=== PATIENT | male | born 1970 | race Caucasian/White ===

== ENCOUNTER 2016-10-20 18:54 | Emergency (ER) | payer MEDICARE, MEDICAID ==
[2016-10-20] MEDS ORDERED: LORazepam TAB(*) 1 MG PO ONE (19:09)
[2016-10-20] MEDS ORDERED: diPHENhydraMINE PO* 50 MG PO ONE (19:09)
[2016-10-20] MEDS ORDERED: Haloperidol TAB* 5 MG PO ONE (19:09)
--- NOTE | 2016-10-20 23:38 | ED ---
Sofiya Howard Erika, scribed for Jeremy Foley MD on 10/20/16 at 2028 . Substance Abuse/Use - HPI Summary HPI Summary: Patient is a 46-year-old male BIB law enforcement to the ED as a 2208. Per , patient called 911 seven times today. He admits to drinking today in the ED. Hx TBI. LEVEL 5 CAVEAT - INTOXICATED. - History Of Current Complaint Chief Complaint: EDSubstanceAbuse Stated Complaint: 2208 Time Seen by Provider: 10/20/16 19:05 Hx Obtained From: Patient, Other: - law enforcement Ingestion History: Type/Name Of Drug - EtOH Severity Currently: Moderate Character: Stuporous Associated Signs And Symptoms: Agitated - Allergies/Home Medications Allergies/Adverse Reactions: Allergies Allergy/AdvReac Type Severity Reaction Status Date / Time Aspirin [ASA] Allergy Intermediate Hives Verified 10/20/16 18:56 PMH/Surg Hx/FS Hx/Imm Hx Endocrine/Hematology History: Denies: Hx Anticoagulant Therapy, Hx Diabetes, Hx Thyroid Disease Cardiovascular History: Denies: Hx Hypertension, Hx Pacemaker/ICD Respiratory History: Denies: Hx Asthma, Hx Chronic Obstructive Pulmonary Disease (COPD) History: Denies: Hx Renal Disease Musculoskeletal History: Reports: Hx Arthritis Sensory History: Reports: Hx Contacts or Glasses, Hx Vision Problem Opthamlomology History: Reports: Hx Contacts or Glasses, Hx Vision Problem Neurological History: Reports: Hx Headaches, Other Neuro Impairments/Disorders - HX TRAUMATIC BRAIN INJURY Denies: Hx Dementia, Hx Seizures Psychiatric History: Reports: Hx Community Mental Health Tx, Hx Substance Abuse Denies: Hx Eating Disorder, Hx of Violent Episodes Against Others - Surgical History Surgery Procedure, Year, and Place: C SPINE FUSION/HX OF FXS TRAUMATIC BRAIN INJURY - Immunization History Date of Tetanus Vaccine: Unknown Date of Influenza Vaccine: unknown Infectious Disease History: No Infectious Disease History: Denies: Hx Hepatitis, Hx Human Immunodeficiency Virus (HIV), Traveled Outside the [place] in Last 30 Days - Family History Family History: EtOH abuse, depression, anxiety, mood disorder - Social History Alcohol Use: Daily Alcohol Amount: ETOH Abuse Hx Substance Use: Yes Substance Use Type: Reports: Cocaine, Marijuana Substance Use Comment - Amount & Last Used: Crack cocaine Hx Tobacco Use: Yes Smoking Status (MU): Heavy Every Day Tobacco Smoker Type: Cigarettes Amount Used/How Often: over a pack daily Length of Time of Smoking/Using Tobacco: many years Have You Smoked in the Last Year: Yes Review of Systems - ROS Summary Review of Systems Summary: LEVEL 5 CAVEAT - INTOXICATED Constitutional: Other - Intoxicated All Other Systems Reviewed And Are Negative: No Physical Exam - Summary Physical Exam Summary: The patient is well-nourished in no acute distress and in no acute pain. The skin is warm and dry and skin color reflects adequate perfusion. HEENT: The head is normocephalic. There is an abrasion above the R eye. No Raccoon or Fernandez's sign. The pupils are equal and reactive. The conjunctivae are clear and without drainage. Nares are patent and without drainage. Mouth reveals moist mucous membranes and the throat is without erythema and exudate. The external ears are intact. The ear canals are patent and without drainage. The tympanic membranes are intact. There is no hemotympanum. Neck is supple with full range of motion. Respiratory: Lungs are clear to auscultation and breath sounds are symmetrical and equal. Cardiovascular: Heart is regular rate and rhythm. There is no murmur or rub auscultated. Abdomen: The abdomen is soft and non-tender. Musculoskeletal: There is good motor strength in both upper extremities. There is no abnormality to the legs. Neurological: Patient is alert and appears intoxicated. Pt admits to drinking. Psychiatric: The patient is agreeable. Triage Information Reviewed: Yes Vital Signs On Initial Exam: Initial Vitals Temp Pulse Resp BP Pulse Ox 98.3 F 72 18 127/91 98 10/20/16 18:56 10/20/16 18:56 10/20/16 18:56 10/20/16 18:56 10/20/16 18:56 Vital Signs Reviewed: Yes Completion Of Physical Exam Limited Due To: Level 5 - Intoxicated Diagnostics - Vital Signs Vital Signs Temp Pulse Resp BP Pulse Ox 10/20/16 18:56 98.3 F 72 18 127/91 98 - Laboratory Lab Statement: Any lab studies that have been ordered have been reviewed, and results considered in the medical decision making process. Course/Dx - Course Assessment/Plan: A 46 y/o presents to the ED intoxicated. Pt admits to drinking. Pt is combative upon arrival, and is given a B-52 in the ED and is resting comfortably. Pt will be discharged once sober. - Diagnoses Differential Diagnosis/HQI/PQRI: Positive: Alcohol Abuse, Other Provider Diagnoses: Acute alcoholic intoxication Discharge - Discharge Plan Condition: Stable Disposition: HOME Patient Education Materials: Alcohol Intoxication (ED) Referrals: Flex Salmeron MD [Primary Care Provider] - The documentation as recorded by the Sofiya calderon Erika accurately reflects the service I personally performed and the decisions made by me, Jeremy Foley MD.
[2016-10-21 06:34] VITALS: BP 102/63
--- NOTE | 2016-10-21 06:54 | ED ---
Sherita Howadr Salem, scribed for Oskar Norman on 10/21/16 at 0645 . Progress - Progress Note Progress Note: Pt is fine. Will be DC'd. Course/Dx - Diagnoses Provider Diagnoses: Acute alcoholic intoxication The documentation as recorded by the Sherita calderon Salem accurately reflects the service I personally performed and the decisions made by Ester roca Emmanuel.
== END 2016-10-21 06:46 | disposition home or self-care (01) ==
LOC: ED 18:54
DX: F10.129 Alcohol abuse with intoxication, unspecified (principal); F17.290 Nicotine dependence, other tobacco product, uncomplicated; Z88.6 Allergy status to analgesic agent
CPT/HCPCS: 99283; A9270-GY

== ENCOUNTER 2016-11-17 18:46 | Emergency (ER) | payer MEDICARE, MEDICAID ==
[2016-11-17 21:00] LABS: Hematocrit 44 % (42-52); Hemoglobin 14.4 g/dl (14.0-18.0); Mean Corpuscular HGB Conc 33 g/dl (31-36); Mean Corpuscular Hemoglobin 31 pg (27-31); Mean Corpuscular Volume 93 fL (80-94); Mean Platelet Volume 8 um3 (7.4-10.4); Red Cell Distribution Width 13 % (10.5-15)
[2016-11-17 21:02] LABS: Urine Bilirubin Negative (Negative); Urine Glucose Negative (Negative); Urine Nitrite Negative (Negative)
[2016-11-17 21:14] LABS: ALT 19 U/L (7-52); AST 21 U/L (13-39); Alkaline Phosphatase 60 U/L (34-104); Anion Gap 12 mmol/L (2-11); Blood Urea Nitrogen 6 mg/dL (6-24); CO2 Carbon Dioxide 24 mmol/L (22-32); Calcium 9.2 mg/dL (8.6-10.3); Chloride 105 mmol/L (101-111); EGFR African American 103.5 (>60); EGFR Non-African American 80.4 (>60); Globulin 2.8 g/dL (2-4); Glucose 98 mg/dL (70-100); Potassium 3.4 mmol/L (3.5-5.0); Sodium 141 mmol/L (133-145); Total Protein 6.8 g/dL (6.4-8.9)
[2016-11-17 21:33] LABS: Benzodiazepine Urine Screen None Detected (None Detect)
[2016-11-17 21:36] LABS: Acetaminophen < 15 mcg/mL; Alcohol 188 mg/dL (<10); Salicylate < 2.50 mg/dL (<30)
[2016-11-17 21:46] LABS: TSH (Thyroid Stimulating Horm) 2.25 mcIU/mL (0.34-5.60)
--- NOTE | 2016-11-17 22:06 | ED ---
Kulwinder Howard Billy, scribed for Armando Hernandez MD on 11/17/16 at 1941 . Psychiatric Complaint - HPI Summary HPI Summary: Patient is a 46 year-old male brought to [facility] by for [facility]. Patient is not very cooperative in the ED and is not providing much history. According to EMS and nursing report, patient is highly intoxicated and has made statements indicating intention to harm himself and others. - History Of Current Complaint Chief Complaint: EDMentalHealth Time Seen by Provider: 11/17/16 19:11 Accompanied By: Sheriff Purcell Obtained From: EMS, Medical Records Onset/Duration: Gradual Onset Timing: Constant Severity Initially: Moderate Severity Currently: Moderate Aggravating Factor(s): Alcohol Use Alleviating Factor(s): Nothing Related History: Positive For: Prior Psychiatric Issues Has Suicidal: Reports: Thoughts Has Homicidal: Reports: Thoughts Ingestion History: Type/Name Of Drug - EtOH, Amount Ingested - Unknown - Allergies/Home Medications Allergies/Adverse Reactions: Allergies Allergy/AdvReac Type Severity Reaction Status Date / Time Aspirin [ASA] Allergy Intermediate Hives Verified 11/17/16 19:04 PMH/Surg Hx/FS Hx/Imm Hx Endocrine/Hematology History: Denies: Hx Anticoagulant Therapy, Hx Diabetes, Hx Thyroid Disease Cardiovascular History: Denies: Hx Hypertension, Hx Pacemaker/ICD Respiratory History: Denies: Hx Asthma, Hx Chronic Obstructive Pulmonary Disease (COPD) History: Denies: Hx Renal Disease Musculoskeletal History: Reports: Hx Arthritis Sensory History: Reports: Hx Contacts or Glasses, Hx Vision Problem Opthamlomology History: Reports: Hx Contacts or Glasses, Hx Vision Problem Neurological History: Reports: Hx Headaches, Other Neuro Impairments/Disorders - HX TRAUMATIC BRAIN INJURY Denies: Hx Dementia, Hx Seizures Psychiatric History: Reports: Hx Community Mental Health Tx, Hx Substance Abuse Denies: Hx Eating Disorder, Hx of Violent Episodes Against Others - Surgical History Surgery Procedure, Year, and Place: C SPINE FUSION/HX OF FXS TRAUMATIC BRAIN INJURY - Immunization History Date of Tetanus Vaccine: Unknown Date of Influenza Vaccine: unknown Infectious Disease History: No Infectious Disease History: Denies: Hx Hepatitis, Hx Human Immunodeficiency Virus (HIV), Traveled Outside the [place] in Last 30 Days - Family History Known Family History: Positive: Other Family History: EtOH abuse, depression, anxiety, mood disorder - Social History Alcohol Use: Daily Alcohol Amount: ETOH Abuse Hx Substance Use: Yes Substance Use Type: Reports: Cocaine, Marijuana Substance Use Comment - Amount & Last Used: Crack cocaine Hx Tobacco Use: Yes Smoking Status (MU): Heavy Every Day Tobacco Smoker Type: Cigarettes Amount Used/How Often: over a pack daily Length of Time of Smoking/Using Tobacco: many years Have You Smoked in the Last Year: Yes Review of Systems Neurological: Other - EtOH intoxication Psychological: Other - SI/HI All Other Systems Reviewed And Are Negative: No - Comments Additional Review of Systems Comments: Full ROS not obtained from the patient as he is highly intoxicated and is not very cooperative. Physical Exam Triage Information Reviewed: Yes Vital Signs On Initial Exam: Initial Vitals Temp Pulse Resp BP Pulse Ox 97.7 F 78 18 129/111 100 11/17/16 19:02 11/17/16 19:02 11/17/16 19:02 11/17/16 19:02 11/17/16 19:02 Vital Signs Reviewed: Yes Appearance: Positive: Well-Appearing, No Pain Distress Skin: Positive: Warm Head/Face: Positive: Normal Head/Face Inspection Eyes: Positive: BRUNO ENT: Positive: Hearing grossly normal Neck: Positive: Supple Respiratory/Lung Sounds: Positive: Clear to Auscultation, Breath Sounds Present Cardiovascular: Positive: RRR Abdomen Description: Positive: Nontender, Soft Bowel Sounds: Positive: Present Musculoskeletal: Positive: Strength/ROM Intact Neurological: Positive: Sensory/Motor Intact, Alert, Oriented to Person Place, Time Psychiatric: Positive: Affect/Mood Appropriate Diagnostics - Vital Signs Vital Signs Temp Pulse Resp BP Pulse Ox 11/17/16 19:02 97.7 F 78 18 129/111 100 - Laboratory Lab Results: Lab Results 11/17/16 11/17/16 11/17/16 Range/Units 20:50 20:50 20:50 WBC 6.0 (3.5-10.8) 10^3/ul RBC 4.70 (4.0-5.4) 10^6/ul Hgb 14.4 (14.0-18.0) g/dl Hct 44 (42-52) % MCV 93 (80-94) fL MCH 31 (27-31) pg MCHC 33 (31-36) g/dl RDW 13 (10.5-15) % Plt Count 170 (150-450) 10^3/ul MPV 8 (7.4-10.4) um3 Neut % (Auto) 48.5 (38-83) % Lymph % (Auto) 42.1 (25-47) % [place] % (Auto) 6.9 (1-9) % Eos % (Auto) 1.5 (0-6) % Baso % (Auto) 1.0 (0-2) % Absolute Neuts (auto) 2.9 (1.5-7.7) 10^3/ul Absolute Lymphs (auto) 2.5 (1.0-4.8) 10^3/ul Absolute Monos (auto) 0.4 (0-0.8) 10^3/ul Absolute Eos (auto) 0.1 (0-0.6) 10^3/ul Absolute Basos (auto) 0.1 (0-0.2) 10^3/ul Absolute Nucleated RBC 0 10^3/ul Nucleated RBC % 0.1 Sodium 141 (133-145) mmol/L Potassium 3.4 L (3.5-5.0) mmol/L Chloride 105 (101-111) mmol/L Carbon Dioxide 24 (22-32) mmol/L Anion Gap 12 H (2-11) mmol/L BUN 6 (6-24) mg/dL Creatinine 1.00 (0.67-1.17) mg/dL Est GFR ( Amer) 103.5 (>60) Est GFR (Non-Af Amer) 80.4 (>60) BUN/Creatinine Ratio 6.0 L (8-20) Glucose 98 (70-100) mg/dL Calcium 9.2 (8.6-10.3) mg/dL Total Bilirubin 0.30 (0.2-1.0) mg/dL AST 21 (13-39) U/L ALT 19 (7-52) U/L Alkaline Phosphatase 60 (34-104) U/L Total Protein 6.8 (6.4-8.9) g/dL Albumin 4.0 (3.2-5.2) g/dL Globulin 2.8 (2-4) g/dL Albumin/Globulin Ratio 1.4 (1-3) TSH 2.25 (0.34-5.60) mcIU/mL Urine Color Straw Urine Appearance Clear Urine pH 6.0 (5-9) Ur Specific [place] 1.002 L (1.010-1.030) Urine Protein Negative (Negative) Urine Ketones Negative (Negative) Urine Blood Negative (Negative) Urine Nitrate Negative (Negative) Urine Bilirubin Negative (Negative) Urine Urobilinogen Negative (Negative) Ur Leukocyte Esterase Negative (Negative) Urine Glucose Negative (Negative) Salicylates < 2.50 (<30) mg/dL Urine Opiates Screen (None Detect) Acetaminophen < 15 mcg/mL Ur Barbiturates Screen (None Detect) Ur Phencyclidine Scrn (None Detect) Ur Amphetamines Screen (None Detect) U Benzodiazepines Scrn (None Detect) Urine Cocaine Screen (None Detect) U Cannabinoids Screen (None Detect) Serum Alcohol 188 H (<10) mg/dL 11/17/16 Range/Units 20:50 WBC (3.5-10.8) 10^3/ul RBC (4.0-5.4) 10^6/ul Hgb (14.0-18.0) g/dl Hct (42-52) % MCV (80-94) fL MCH (27-31) pg MCHC (31-36) g/dl RDW (10.5-15) % Plt Count (150-450) 10^3/ul MPV (7.4-10.4) um3 Neut % (Auto) (38-83) % Lymph % (Auto) (25-47) % [place] % (Auto) (1-9) % Eos % (Auto) (0-6) % Baso % (Auto) (0-2) % Absolute Neuts (auto) (1.5-7.7) 10^3/ul Absolute Lymphs (auto) (1.0-4.8) 10^3/ul Absolute Monos (auto) (0-0.8) 10^3/ul Absolute Eos (auto) (0-0.6) 10^3/ul Absolute Basos (auto) (0-0.2) 10^3/ul Absolute Nucleated RBC 10^3/ul Nucleated RBC % Sodium (133-145) mmol/L Potassium (3.5-5.0) mmol/L Chloride (101-111) mmol/L Carbon Dioxide (22-32) mmol/L Anion Gap (2-11) mmol/L BUN (6-24) mg/dL Creatinine (0.67-1.17) mg/dL Est GFR ( Amer) (>60) Est GFR (Non-Af Amer) (>60) BUN/Creatinine Ratio (8-20) Glucose (70-100) mg/dL Calcium (8.6-10.3) mg/dL Total Bilirubin (0.2-1.0) mg/dL AST (13-39) U/L ALT (7-52) U/L Alkaline Phosphatase (34-104) U/L Total Protein (6.4-8.9) g/dL Albumin (3.2-5.2) g/dL Globulin (2-4) g/dL Albumin/Globulin Ratio (1-3) TSH (0.34-5.60) mcIU/mL Urine Color Urine Appearance Urine pH (5-9) Ur Specific [place] (1.010-1.030) Urine Protein (Negative) Urine Ketones (Negative) Urine Blood (Negative) Urine Nitrate (Negative) Urine Bilirubin (Negative) Urine Urobilinogen (Negative) Ur Leukocyte Esterase (Negative) Urine Glucose (Negative) Salicylates (<30) mg/dL Urine Opiates Screen None detected (None Detect) Acetaminophen mcg/mL Ur Barbiturates Screen None detected (None Detect) Ur Phencyclidine Scrn None detected (None Detect) Ur Amphetamines Screen None detected (None Detect) U Benzodiazepines Scrn None detected (None Detect) Urine Cocaine Screen None detected (None Detect) U Cannabinoids Screen Presumptive positive H (None Detect) Serum Alcohol (<10) mg/dL Result Diagrams: 11/17/16 20:50 11/17/16 20:50 Lab Statement: Any lab studies that have been ordered have been reviewed, and results considered in the medical decision making process. Course/Dx - Differential Dx/Clinical Impression Provider Diagnosis: Alcohol intoxication Discharge - Discharge Plan Condition: Improved Disposition: HOME Referrals: Flex Salmeron MD [Primary Care Provider] - The documentation as recorded by the Kulwinder calderon Billy accurately reflects the service I personally performed and the decisions made by , Armando Hernandez MD.
[2016-11-18 04:35] VITALS: BP 125/65
== END 2016-11-18 02:35 | disposition home or self-care (01) ==
LOC: ED 18:46
DX: F10.129 Alcohol abuse with intoxication, unspecified (principal); Y90.6 Blood alcohol level of 120-199 mg/100 ml
CPT/HCPCS: 36415; 80053; 80307; 80320; 80329; 81003; 84443; 85025; 99284; G0480

== ENCOUNTER → 2017-01-09 13:23 | Emergency (ER) | payer MEDICARE, MEDICAID ==
[~2017-01-09 13:23] MED LIST: Haloperidol INJ IV/IM* 5 MG/ML AMP IM ONE; Haloperidol INJ IV/IM* 5 MG/ML AMP ONE; LORazepam INJ* 2 MG/ML 1 ML VIAL IM ONE; diPHENhydraMINE IV* 50 MG/ML 1 ml VIAL (BENADRYL) IM ONE
[2017-01-10 06:13] VITALS: BP 109/68
--- NOTE | 2017-01-10 14:01 | ED ---
Viviana Howard Anna, scribed for Ndubuisi,Cole Mckoy MD on 01/09/17 at 1809 . Substance Abuse/Use - HPI Summary HPI Summary: Patient is a 46 y/o male BIBA to [facility] presenting with alchohol intoxication. No trauma noted, smells of EtOH, and does not ambulate in a straight line. - History Of Current Complaint Chief Complaint: EDSubstanceAbuse Stated Complaint: 2209 EOTH Time Seen by Provider: 01/09/17 13:25 Hx Obtained From: Patient, EMS Hx From Patient Unobtainable Due To: Altered Mental Status - Allergies/Home Medications Allergies/Adverse Reactions: Allergies Allergy/AdvReac Type Severity Reaction Status Date / Time Aspirin [ASA] Allergy Intermediate Hives Verified 11/17/16 19:04 Home Medications: Home Medications Aripiprazole Maintena (NF) [Abilify Maintena (NF)] 400 mg IM Q28D 01/09/17 [ History Confirmed 01/09/17] Ibuprofen TAB* [Motrin TAB* 600 MG] 600 mg PO Q8H PRN 01/09/17 [History Confirmed 01/09/17] PMH/Surg Hx/FS Hx/Imm Hx Endocrine/Hematology History: Denies: Hx Anticoagulant Therapy, Hx Diabetes, Hx Thyroid Disease Cardiovascular History: Denies: Hx Hypertension, Hx Pacemaker/ICD Respiratory History: Denies: Hx Asthma, Hx Chronic Obstructive Pulmonary Disease (COPD) History: Denies: Hx Renal Disease Musculoskeletal History: Reports: Hx Arthritis Sensory History: Reports: Hx Contacts or Glasses, Hx Vision Problem Opthamlomology History: Reports: Hx Contacts or Glasses, Hx Vision Problem Neurological History: Reports: Hx Headaches, Other Neuro Impairments/Disorders - HX TRAUMATIC BRAIN INJURY Denies: Hx Dementia, Hx Seizures Psychiatric History: Reports: Hx Community Mental Health Tx, Hx Substance Abuse Denies: Hx Eating Disorder, Hx of Violent Episodes Against Others - Surgical History Surgery Procedure, Year, and Place: C SPINE FUSION/HX OF FXS TRAUMATIC BRAIN INJURY - Immunization History Date of Tetanus Vaccine: Unknown Date of Influenza Vaccine: unknown Infectious Disease History: No Infectious Disease History: Denies: Hx Hepatitis, Hx Human Immunodeficiency Virus (HIV), Traveled Outside the [place] in Last 30 Days - Family History Known Family History: Positive: Other Family History: EtOH abuse, depression, anxiety, mood disorder - Social History Alcohol Use: Daily Alcohol Amount: ETOH Abuse Hx Substance Use: Yes Substance Use Type: Reports: Cocaine, Marijuana Substance Use Comment - Amount & Last Used: Crack cocaine Hx Tobacco Use: Yes Smoking Status (MU): Heavy Every Day Tobacco Smoker Type: Cigarettes Amount Used/How Often: over a pack daily Length of Time of Smoking/Using Tobacco: many years Have You Smoked in the Last Year: Yes Review of Systems - ROS Summary Review of Systems Summary: LEVEL 5 CAVEAT - UNABLE TO OBTAIN FULL HISTORY DUE TO ALTERED MENTAL STATUS Constitutional: Other - alcohol intoxication Neurological: Other - drowsy but rousable All Other Systems Reviewed And Are Negative: No Physical Exam Triage Information Reviewed: Yes Vital Signs On Initial Exam: Initial Vitals Temp Pulse Resp BP Pulse Ox 97.7 F 76 18 102/47 98 01/09/17 13:43 01/09/17 13:43 01/09/17 13:43 01/09/17 13:43 01/09/17 13:43 Vital Signs Reviewed: Yes Appearance: Positive: Well-Appearing, No Pain Distress, Well-Nourished Skin: Positive: Warm, Skin Color Reflects Adequate Perfusion, Dry Head/Face: Positive: Normal Head/Face Inspection Eyes: Positive: EOMI, BRUNO, Conjunctiva Clear ENT: Positive: Pharynx normal, TMs normal Neck: Positive: Supple, Nontender Respiratory/Lung Sounds: Positive: Clear to Auscultation, Breath Sounds Present. Negative: Rales, Rhonchi, Wheezes Cardiovascular: Positive: RRR, S1, S2. Negative: Murmur, Rub, Other - no gallops Abdomen Description: Positive: Nontender, Soft. Negative: Distended, Guarding, Other: Bowel Sounds: Positive: Present Musculoskeletal: Positive: Normal, Strength/ROM Intact Neurological: Positive: Normal, Sensory/Motor Intact, Alert, Oriented to Person Place, Time. Negative: Cerebellar Dysfunction Psychiatric: Positive: Affect/Mood Appropriate - Hemant Coma Scale Coma Scale Total: 14 Diagnostics - Vital Signs Vital Signs Temp Pulse Resp BP Pulse Ox 01/09/17 16:41 97.9 F 65 18 103/65 96 01/09/17 16:38 20 01/09/17 15:17 58 17 94/58 100 01/09/17 13:46 97.9 F 76 18 102/47 98 01/09/17 13:43 97.7 F 76 18 102/47 98 - Laboratory Lab Results: Lab Results 01/09/17 Range/Units 19:34 POC Glucose (mg/dL) 81 (74-106) mg/dL Lab Statement: Any lab studies that have been ordered have been reviewed, and results considered in the medical decision making process. Re-Evaluation - Re-Evaluation First Eval Re-Evaluation Time: 15:10 Change: Unchanged Comment: Pt is still combative. Being held down physically by security after 50 mg IM of Benadryl and 50 mg of Ativan. Will give 5 mg of Haloperidol and re- assess. Course/Dx - Course Assessment/Plan: Patient is a 46 y/o male BIBA to [facility] presenting with altered mental status that began today. Pt combative in the ED course. He was held down physically by security after 50 mg IM of Benadryl and 50 mg of Ativan. He was given 5 mg of Haloperidol. At shift change, patient is still intoxicated and sleeping. Difficult to rouse. He will be signed out pending sobriety. - Diagnoses Provider Diagnoses: Alcohol use Discharge - Discharge Plan Condition: Stable Disposition: HOME Discharge Disposition Comment: Signed out to Dr. Wilson at shift change, pending sobriety Patient Education Materials: Alcohol Intoxication (ED) Referrals: Flex Salmeron MD [Primary Care Provider] - Additional Instructions: FOLLOW UP WITH YOUR DOCTOR. RETURN TO THE EMERGENCY DEPARTMENT FOR ANY WORSENING OF YOUR CONDITION OR QUESTIONS OR CONCERNS. The documentation as recorded by the Viviana calderon Anna accurately reflects the service I personally performed and the decisions made by , Cole Verdin MD.
== END | disposition home or self-care (01) ==
LOC: ED 13:23
DX: F10.10 Alcohol abuse, uncomplicated (principal)
CPT/HCPCS: 96374; 96375; 99285; J1200; J1630; J2060

== ENCOUNTER 2017-02-28 19:53 | Emergency (ER) | payer MEDICARE, MEDICAID ==
--- NOTE | 2017-02-28 21:35 | ED ---
Shawna Howard Claudia, scribed for Armando Hernandez MD on 02/28/17 at 2006 . Substance Abuse/Use - HPI Summary HPI Summary: 46 year old male presents to the ED via EMS after police were called for being intoxicated and combative at a nearby gas station. Pt is combative and requesting to go to another hospital upon arrival. Pt is stuporous in the ED. There is no evidence of trauma. level 5 caveat- stuporous - History Of Current Complaint Stated Complaint: ETOH/941 Time Seen by Provider: 02/28/17 20:01 Hx Obtained From: Patient - Allergies/Home Medications Allergies/Adverse Reactions: Allergies Allergy/AdvReac Type Severity Reaction Status Date / Time Aspirin [ASA] Allergy Intermediate Hives Verified 11/17/16 19:04 PMH/Surg Hx/FS Hx/Imm Hx Previously Healthy: Yes Endocrine/Hematology History: Denies: Hx Anticoagulant Therapy, Hx Diabetes, Hx Thyroid Disease Cardiovascular History: Denies: Hx Hypertension, Hx Pacemaker/ICD Respiratory History: Denies: Hx Asthma, Hx Chronic Obstructive Pulmonary Disease (COPD) History: Denies: Hx Renal Disease Musculoskeletal History: Reports: Hx Arthritis Sensory History: Reports: Hx Contacts or Glasses, Hx Vision Problem Opthamlomology History: Reports: Hx Contacts or Glasses, Hx Vision Problem Neurological History: Reports: Hx Headaches, Other Neuro Impairments/Disorders - HX TRAUMATIC BRAIN INJURY Denies: Hx Dementia, Hx Seizures Psychiatric History: Reports: Hx Community Mental Health Tx, Hx Substance Abuse Denies: Hx Eating Disorder, Hx of Violent Episodes Against Others - Surgical History Surgery Procedure, Year, and Place: C SPINE FUSION/HX OF FXS TRAUMATIC BRAIN INJURY - Immunization History Date of Tetanus Vaccine: Unknown Date of Influenza Vaccine: unknown Infectious Disease History: Denies: Hx Hepatitis, Hx Human Immunodeficiency Virus (HIV), Traveled Outside the [place] in Last 30 Days - Family History Known Family History: Positive: Other Family History: EtOH abuse, depression, anxiety, mood disorder - Social History Occupation: Disabled Alcohol Use: Daily Alcohol Amount: ETOH Abuse Hx Substance Use: Yes Substance Use Type: Reports: Cocaine, Marijuana Substance Use Comment - Amount & Last Used: Crack cocaine Hx Tobacco Use: Yes Smoking Status (MU): Heavy Every Day Tobacco Smoker Type: Cigarettes Amount Used/How Often: over a pack daily Length of Time of Smoking/Using Tobacco: many years Have You Smoked in the Last Year: Yes Review of Systems - ROS Summary Review of Systems Summary: Level 5 caveat- Stuporous Constitutional: Negative Eyes: Negative ENT: Negative Cardiovascular: Negative Respiratory: Negative Gastrointestinal: Negative Genitourinary: Negative Musculoskeletal: Negative Skin: Negative Neurological: Negative Positive: Other - stuporous All Other Systems Reviewed And Are Negative: No Physical Exam Triage Information Reviewed: Yes Vital Signs On Initial Exam: Initial Vitals Temp Pulse Resp BP Pulse Ox 98.4 F 73 22 102/75 95 02/28/17 20:00 02/28/17 20:00 02/28/17 20:00 02/28/17 20:00 02/28/17 20:00 Vital Signs Reviewed: Yes Appearance: Positive: Well-Appearing Skin: Positive: Warm Head/Face: Positive: Normal Head/Face Inspection Eyes: Positive: BRUNO Respiratory/Lung Sounds: Positive: Breath Sounds Present Cardiovascular: Positive: RRR Abdomen Description: Positive: Nontender, Soft Musculoskeletal: Positive: Strength/ROM Intact Diagnostics - Vital Signs Vital Signs Temp Pulse Resp BP Pulse Ox 02/28/17 20:00 98.4 F 73 22 102/75 95 - Laboratory Lab Statement: Any lab studies that have been ordered have been reviewed, and results considered in the medical decision making process. Course/Dx - Course Assessment/Plan: MDM: PT RECIEVES ROUTINE WORK-UP. PT WILL BE D/C [facility]ON [facility]. - Diagnoses Provider Diagnoses: Alcohol use disorder Discharge - Discharge Plan Condition: Improved Disposition: HOME Patient Education Materials: Alcohol Intoxication (ED) Referrals: Flex Salmeron MD [Primary Care Provider] - The documentation as recorded by the Shawna calderon Claudia accurately reflects the service I personally performed and the decisions made by , Armando Hernandez MD.
[2017-03-01 06:23] VITALS: BP 137/66
== END 2017-03-01 06:22 | disposition home or self-care (01) ==
LOC: ED 19:53
DX: F10.929 Alcohol use, unspecified with intoxication, unspecified (principal); F17.210 Nicotine dependence, cigarettes, uncomplicated
CPT/HCPCS: 99285

== ENCOUNTER 2017-03-16 23:19 | Emergency (ER) | payer MEDICARE, MEDICAID ==
--- NOTE | 2017-03-17 00:54 | ED ---
Syed Howard Rebecca, scribed for Armando Hernandez MD on 03/16/17 at 2351 . 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 Tonight, he fell and walked to the fire station. Pt ranked pain as 8/10 on triage, though pain was alleviated after bandaging by his nurse. Level 5 caveat due to EtOH intoxication. - History Of Current Complaint Chief Complaint: EDSubstanceAbuse Stated Complaint: 2208 Time Seen by Provider: 03/16/17 23:42 Hx Obtained From: EMS Hx From Patient Unobtainable Due To: Other - EtOH intoxication Ingestion History: Type/Name Of Drug - EtOH Overdose Characteristics: Oral Associated Signs And Symptoms: Other: - Bilateral LE pain - Allergies/Home Medications Allergies/Adverse Reactions: Allergies Allergy/AdvReac Type Severity Reaction Status Date / Time Aspirin [ASA] Allergy Intermediate Hives Verified 11/17/16 19:04 PMH/Surg Hx/FS Hx/Imm Hx Endocrine/Hematology History: Denies: Hx Anticoagulant Therapy, Hx Diabetes, Hx Thyroid Disease Cardiovascular History: Denies: Hx Hypertension, Hx Pacemaker/ICD Respiratory History: Denies: Hx Asthma, Hx Chronic Obstructive Pulmonary Disease (COPD) History: Denies: Hx Renal Disease Musculoskeletal History: Reports: Hx Arthritis Sensory History: Reports: Hx Contacts or Glasses, Hx Vision Problem Opthamlomology History: Reports: Hx Contacts or Glasses, Hx Vision Problem Neurological History: Reports: Hx Headaches, Other Neuro Impairments/Disorders - HX TRAUMATIC BRAIN INJURY Denies: Hx Dementia, Hx Seizures Psychiatric History: Reports: Hx Community Mental Health Tx, Hx Substance Abuse Denies: Hx Eating Disorder, Hx of Violent Episodes Against Others - Surgical History Surgery Procedure, Year, and Place: C SPINE FUSION/HX OF FXS TRAUMATIC BRAIN INJURY - Immunization History Date of Tetanus Vaccine: Unknown Date of Influenza Vaccine: unknown Infectious Disease History: No Infectious Disease History: Denies: Hx Hepatitis, Hx Human Immunodeficiency Virus (HIV), Traveled Outside the [place] in Last 30 Days - Family History Known Family History: Positive: Other Family History: EtOH abuse, depression, anxiety, mood disorder - Social History Alcohol Use: Daily Alcohol Amount: ETOH Abuse Hx Substance Use: Yes Substance Use Type: Reports: Cocaine, Marijuana Substance Use Comment - Amount & Last Used: Crack cocaine Hx Tobacco Use: Yes Smoking Status (MU): Heavy Every Day Tobacco Smoker Type: Cigarettes Amount Used/How Often: over a pack daily Length of Time of Smoking/Using Tobacco: many years Have You Smoked in the Last Year: Yes Review of Systems - ROS Summary Review of Systems Summary: Level 5 caveat due to EtOH intoxication Positive: Other - EtOH intoxication Positive: Arthralgia - Bilateral LE pain s/p mechanical fall All Other Systems Reviewed And Are Negative: No Physical Exam Triage Information Reviewed: Yes Vital Signs On Initial Exam: Initial Vitals Temp Pulse Resp BP Pulse Ox 98.3 F 79 18 123/96 94 03/16/17 23:24 03/16/17 23:24 03/16/17 23:24 03/16/17 23:24 03/16/17 23:24 Vital Signs Reviewed: Yes Appearance: Positive: Well-Appearing, No Pain Distress - aob Skin: Positive: Warm Head/Face: Positive: Normal Head/Face Inspection Eyes: Positive: BRUNO ENT: Positive: Hearing grossly normal Neck: Positive: Supple Respiratory/Lung Sounds: Positive: Clear to Auscultation, Breath Sounds Present Cardiovascular: Positive: RRR Abdomen Description: Positive: Nontender, Soft Bowel Sounds: Positive: Present Musculoskeletal: Positive: Strength/ROM Intact Neurological: Positive: Alert, Oriented to Person Place, Time Psychiatric: Positive: Affect/Mood Appropriate - Hemant Coma Scale Coma Scale Total: 15 Diagnostics - Vital Signs Vital Signs Temp Pulse Resp BP Pulse Ox 03/16/17 23:24 98.3 F 79 18 123/96 94 - Laboratory Lab Statement: Any lab studies that have been ordered have been reviewed, and results considered in the medical decision making process. 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 Tonight, he fell and walked to the fire station. Pt ranked pain as 8/10 on triage, though pain was alleviated after bandaging by his nurse. Level 5 caveat due to EtOH intoxication. Pt will be D/C to home with Dx of EtOH intoxication. He understands and agrees. - Diagnoses Provider Diagnoses: Alcohol intoxication Discharge - Discharge Plan Condition: Stable Disposition: HOME Patient Education Materials: Alcohol Intoxication (ED) Referrals: Flex Salmeron MD [Primary Care Provider] - 3 Days The documentation as recorded by the Syed calderon Rebecca accurately reflects the service I personally performed and the decisions made by me, Armando Hernandez MD.
[2017-03-17 01:38] VITALS: BP 114/57
== END 2017-03-17 06:08 | disposition home or self-care (01) ==
LOC: ED 23:19
DX: F10.129 Alcohol abuse with intoxication, unspecified (principal); M79.605 Pain in left leg; M79.604 Pain in right leg; W19.XXXA Unspecified fall, initial encounter; Z79.82 Long term (current) use of aspirin
CPT/HCPCS: 99283

== ENCOUNTER 2017-04-23 15:36 | Emergency (ER) | payer MEDICARE, MEDICAID ==
[2017-04-23 15:56] VITALS: BP 127/88
[2017-04-23] MEDS ORDERED: Nicotine Inhaler* 10 MG AMP INH ONE (16:14)
[2017-04-23] MEDS ORDERED: Mouth Piece, Nicotine* 1 EACH CARTRIDGE INH PRN (16:14)
[2017-04-23] MEDS ORDERED: Mouth Piece, Nicotine* 1 EACH CARTRIDGE ONE (16:23)
--- NOTE | 2017-04-23 17:37 | ED ---
Substance Abuse/Use - HPI Summary HPI Summary: Patient presents with ETOH use/abuse. He states he drank "a lot" and was found 100ft from his front door step. He denies hitting his head, LOC or any pain. He endorses ETOH use daily. Denies drug use. Patient is a smoker and lives alone. Denies health problems. Denies any symptoms including chest pain, SOB, abdominal pain, confusion, memory loss, N/V or weakness. He denies SI/HI and takes no medications. - History Of Current Complaint Chief Complaint: EDSubstanceAbuse Stated Complaint: ETOH Time Seen by Provider: 04/23/17 15:56 Hx Obtained From: Patient Onset/Duration of Drug/ETOH Abuse: Hours Ingestion History: Amount Ingested - unknown Timing Of Abuse: Daily Severity Initially: Severe Severity Currently: Severe Character: Stuporous Aggravating Factor(s): Nothing Alleviating Factor(s): Nothing Associated Signs And Symptoms: Negative - Risk Factor(s) Completed Suicide Risk Factors: Male, White [place] - Allergies/Home Medications Allergies/Adverse Reactions: Allergies Allergy/AdvReac Type Severity Reaction Status Date / Time Aspirin [ASA] Allergy Intermediate Hives Verified 11/17/16 19:04 Home Medications: Home Medications Aripiprazole Maintena (NF) [Abilify Maintena (NF)] 400 mg IM Q28D 04/23/17 [ History Confirmed 04/23/17] PMH/Surg Hx/FS Hx/Imm Hx Previously Healthy: Yes Endocrine/Hematology History: Denies: Hx Anticoagulant Therapy, Hx Diabetes, Hx Thyroid Disease Cardiovascular History: Denies: Hx Hypertension, Hx Pacemaker/ICD Respiratory History: Denies: Hx Asthma, Hx Chronic Obstructive Pulmonary Disease (COPD) History: Denies: Hx Renal Disease Musculoskeletal History: Reports: Hx Arthritis Sensory History: Reports: Hx Contacts or Glasses, Hx Vision Problem Opthamlomology History: Reports: Hx Contacts or Glasses, Hx Vision Problem Neurological History: Reports: Hx Headaches, Other Neuro Impairments/Disorders - HX TRAUMATIC BRAIN INJURY Denies: Hx Dementia, Hx Seizures Psychiatric History: Reports: Hx Community Mental Health Tx, Hx Substance Abuse Denies: Hx Eating Disorder, Hx of Violent Episodes Against Others - Surgical History Surgery Procedure, Year, and Place: C SPINE FUSION/HX OF FXS TRAUMATIC BRAIN INJURY - Immunization History Date of Tetanus Vaccine: Unknown Date of Influenza Vaccine: unknown Hx Pertussis Vaccination: No Immunizations Up to Date: Unable to Obtain/Confirm Infectious Disease History: No Infectious Disease History: Denies: Hx Hepatitis, Hx Human Immunodeficiency Virus (HIV), Traveled Outside the [place] in Last 30 Days - Family History Known Family History: Positive: Other Family History: EtOH abuse, depression, anxiety, mood disorder - Social History Occupation: Employed Part-time Lives: Alone Alcohol Use: Daily Alcohol Amount: ETOH Abuse Hx Substance Use: Yes - none x several months Substance Use Type: Reports: Cocaine, Marijuana Substance Use Comment - Amount & Last Used: Crack cocaine Hx Tobacco Use: Yes Smoking Status (MU): Heavy Every Day Tobacco Smoker Type: Cigarettes Amount Used/How Often: over a pack daily Length of Time of Smoking/Using Tobacco: many years Have You Smoked in the Last Year: Yes Review of Systems Constitutional: Negative Eyes: Negative Cardiovascular: Negative Positive: Shortness Of Breath Positive: no symptoms reported, see HPI Musculoskeletal: Negative Neurological: Negative Positive: Depressed - intermittently/ no symptoms today All Other Systems Reviewed And Are Negative: Yes Physical Exam Triage Information Reviewed: Yes Vital Signs On Initial Exam: Initial Vitals Temp Pulse Resp BP Pulse Ox 98.3 F 73 14 127/88 96 04/23/17 15:49 04/23/17 15:49 04/23/17 15:49 04/23/17 15:49 04/23/17 15:49 Vital Signs Reviewed: Yes Appearance: Positive: No Pain Distress, Well-Nourished, Cachectic Skin: Positive: Warm, Skin Color Reflects Adequate Perfusion Head/Face: Positive: Normal Head/Face Inspection Eyes: Positive: EOMI, BRUNO, Conjunctiva Clear Neck: Positive: Supple, Nontender, No Lymphadenopathy Respiratory/Lung Sounds: Positive: Breath Sounds Present Cardiovascular: Positive: Normal, RRR, Pulses are Symmetrical in both Upper and Lower Extremities Musculoskeletal: Positive: Normal, Strength/ROM Intact Neurological: Positive: Sensory/Motor Intact, Alert, Oriented to Person Place, Time, Speech Normal Psychiatric: Positive: Affect/Mood Appropriate AVPU Assessment: Alert - Hemant Coma Scale Best Eye Response: 4 - Spontaneous Best Motor Response: 6 - Obeys Commands Best Verbal Response: 5 - Oriented Coma Scale Total: 15 Diagnostics - Vital Signs Vital Signs Temp Pulse Resp BP Pulse Ox 04/23/17 15:49 98.3 F 73 14 127/88 96 - Laboratory Lab Statement: Any lab studies that have been ordered have been reviewed, and results considered in the medical decision making process. Course/Dx - Course Course Of Treatment: Patient evaluated for ETOH abuse. Patient denies SI/HI. He states he wants to just sleep it off and is requesting a nicotene inhaler. Denies any pain, health problems, hitting his head or LOC. After 3-4 hours, patient is able to tolerate PO, is A and ) x 3 and is albulating well. He states he would like to go home. Will DC home with return precautions. - Diagnoses Differential Diagnosis/HQI/PQRI: Positive: Alcohol Abuse, Alcohol Withdrawal Provider Diagnoses: Alcohol abuse Discharge - Discharge Plan Condition: Stable Disposition: HOME Patient Education Materials: Alcohol Intoxication (ED) Referrals: Flex Salmeron MD [Primary Care Provider] - Additional Instructions: DO NOT DRINK TO EXCESS DRINK PLENTY OF WATER
== END 2017-04-23 19:15 | disposition home or self-care (01) ==
LOC: ED 15:36
DX: R06.02 Shortness of breath (principal); F32.9 Major depressive disorder, single episode, unspecified; F10.10 Alcohol abuse, uncomplicated; F17.210 Nicotine dependence, cigarettes, uncomplicated
CPT/HCPCS: 99282; A9270-GY